=== PATIENT | female | born 1995 | race Caucasian/White ===

== ENCOUNTER 2025-04-13 04:18 | Emergency (ER) | payer OTHER, SELFPAY ==
[2025-04-13 04:24] VITALS: BP 129/80
[2025-04-13 04:45] VITALS: BMI 21.7
[2025-04-13] MEDS: REGLAN 10 MG IV (04:51)
[2025-04-13] MEDS: BENADRYL 25 MG IV (04:52)
[2025-04-13] MEDS: NSS 1000 IV ×2 (04:53→06:25)
[2025-04-13 05:00] LABS: Hematocrit 36.2 % (37.0-47.0); Hemoglobin 13.4 g/dL (12.0-16.0); Mean Corp Hgb Conc. 37.0 g/dL (33.0-37.0); Mean Corpuscular Volume 81.9 fL (81.0-99.0); Nucleated Red Blood Cells % 0 %; Platelet Count 289 10^3/uL (130-400); Red Cell Dist. Width 12.4 % (11.5-14.5)
[2025-04-13 05:10] LABS: HCG, Serum Qualitative Screen Negative
[2025-04-13 05:14] LABS: ALT (SGPT) 18 U/L (0-35); AST (SGOT) 26 U/L (14-36); Albumin 4.7 g/dl (3.5-5.0); Alkaline Phosphatase 58 U/L (38-126); Blood Urea Nitrogen 14 mg/dl (7-17); Calcium 12.1 mg/dl (8.4-10.2); Carbon Dioxide 16 mmol/L (22-30); Chloride 107 mmol/L (98-107); Estimated Creatinine Clearance 70 ml/min; Glucose 102 mg/dl (70-99); Lipase 62 U/L (23-300); Potassium 3.3 mmol/L (3.5-5.1); Sodium 138 mmol/L (135-145); Total Protein 7.7 g/dl (6.3-8.2); eGFR > 60.00
--- NOTE | 2025-04-13 06:05 | ED.GENMED ---
History of Present Illness
General
Chief Complaint: Abdominal Symptoms
Time Seen by Provider: 04/13/25 06:05
History of Present Illness
History of Present Illness:
FOCUSED PAST MEDICAL HISTORY
- Cyclic vomiting syndrome
REVIEW OF OLD RECORDS
- I reviewed records, the patient was admitted with sepsis/ureteral stone 2020. At that time it was documented he has a history of impaired gastric motility.
Note:
CHIEF COMPLAINT(S)
Nausea and recurrent vomiting episodes
HISTORY OF PRESENT ILLNESS
The patient is a 29-year-old female with a potential diagnosis of cyclic vomiting syndrome, experiencing episodic nausea and vomiting. These episodes occur approximately every 2-3 months but have become somewhat manageable over the past two years
through dietary adjustments. The patient reports an episode triggered by dehydration on a Friday but continues to experience vomiting due to ongoing gastric issues. Additionally, there is a suspicion of gastroparesis, although definitive gastric
motility studies have not been conducted yet. The patient presented to the emergency department with low bicarbonate levels consistent with dehydration. Since the onset of this current episode, the severity of symptoms includes significant nausea
without substantial pain.
PAST MEDICAL AND SURGICAL HISTORY
The patient mentioned previous visits to [facility] and occasional visits to [facility] for similar episodes.
MEDICATIONS
- Insulin
- Multivitamin
- Reglan (Metoclopramide)
- Promethazine (occasionally used for nausea)
SOCIAL HISTORY
The patient reports heavy daily marijuana use.
REVIEW OF SYSTEMS
- Gastrointestinal: Recurrent nausea, vomiting, potential gastroparesis.
- Metabolic: Low bicarbonate levels associated with dehydration.
- Psychological: Occasional use of antipsychotic medications for symptom management.
- Habits: Heavy daily use of marijuana.
PHYSICAL EXAM
General: Alert but appears uncomfortable.
Skin: Warm, dry.
Head: Normocephalic, atraumatic.
Neck: Supple, trachea midline.
Eye Ears, nose, mouth and throat: Oral mucosa moist.
Cardiovascular: Normal peripheral perfusion, No edema.
Respiratory: Respirations are non-labored.
Gastrointestinal: Moderate diffuse abdominal tenderness observed.
Back: Normal range of motion, Normal alignment.
Musculoskeletal: Normal range of motion, normal strength.
Neurological: Alert and oriented to person, place, time, and situation, No focal neurological deficit observed.
Psychiatric: Cooperative, appropriate mood & affect.
PLAN
- Administer additional intravenous fluids for rehydration.
- Consider antiemetic therapy tailored towards potential cannabinoid hyperemesis syndrome, possibly Ondansetron.
- Further exploration with possible use of antipsychotic medications for symptom control.
- Educate the patient on the potential implications of continued marijuana use on her symptoms, particularly concerning cannabinoid hyperemesis syndrome.
DIFFERENTIAL DIAGNOSIS
The Differential Diagnosis includes, in no particular order and is not limited to:
1. Cyclic vomiting syndrome
2. Gastroparesis
3. Cannabinoid hyperemesis syndrome
4. Gastroenteritis
5. Gastric outlet obstruction
6. Peptic ulcer disease
7. Gastroesophageal reflux disease
8. Pancreatitis
9. Migraine-associated nausea/vomiting
10. Metabolic or electrolyte imbalance
EKG
Sinus 67, QTc 471 ms
LABS
- White count 14.5, hemoglobin normal, creatinine 1.2, calcium 12.1, bicarb 16
SUMMARY OF ENCOUNTER
The patient, a 29-year-old female with a history suggestive of cyclic vomiting syndrome and potential cannabinoid hyperemesis syndrome, presented to the emergency department with significant dehydration, as evidenced by low bicarbonate levels.
Initial labs showed extremely high calcium levels likely due to dehydration but repeated tests normalized. Potassium levels remained low. The patient was rehydrated with IV fluids. There is a significant suspicion that heavy marijuana use may be
contributing to the recurrent episodes of nausea and vomiting. The patient was educated on the potential role of marijuana in her symptoms and advised on its cessation.
DISPOSITION
Discharge.
ASSESSMENT
The patient presented with signs consistent with dehydration and electrolyte imbalances due to cyclic vomiting syndrome or cannabinoid hyperemesis syndrome, complicated by low potassium levels.
EMERGENCY TREATMENTS ADMINISTERED
Intravenous fluids for rehydration and oral potassium supplementation.
PLAN
- Administer oral potassium supplementation prior to discharge.
- Educate the patient on the potential effects of heavy marijuana use on her symptoms and advise discontinuation to prevent further episodes.
- Prescribe oral potassium supplements for home use.
- Provide a work note for todays absence.
INDEPENDENT REVIEW OF LABS AND INTERPRETATION OF TESTS
My independent review of labs indicates initially low bicarbonate levels, suggesting significant dehydration. My independent review of electrolyte levels also shows extremely high initial calcium now normalized with repeated testing and low
potassium, which requires supplementation.
PATIENT EDUCATION AND COUNSELING
The patient was informed about the possibility of cannabinoid hyperemesis syndrome related to heavy marijuana use and advised to consider ceasing its use to alleviate symptoms.
FOLLOW-UP INSTRUCTIONS
The patient is discharged with instructions to follow up with her primary care provider for further management of her recurrent symptoms and assessment for potential gastroparesis and to discuss the impact of marijuana use.
MEDICATION RECONCILIATION
- Prescription for oral potassium supplements provided.
- Confirms current use of Metoclopramide (Reglan) for symptom management.
MEDICAL DECISION MAKING
- Number and Complexity of Problems Addressed: Chronic conditions affecting care include cyclic vomiting syndrome, potential cannabinoid hyperemesis syndrome, dehydration, and electrolyte imbalance. Differential diagnoses considered include
gastroparesis, gastric outlet obstruction, peptic ulcer disease, gastroesophageal reflux disease, pancreatitis, and metabolic or electrolyte imbalance.
- Data:
Category 1: Reviewed initial and repeat lab tests for bicarbonate, calcium, and potassium levels.
Category 2: N/A
Category 3: N/A
- Risk: Prescription drug management involves monitoring for potassium supplementations potential risks. Consideration of Admission/Observation was evaluated given the complexity but determined outpatient management is appropriate due to stable
presentation and response to initial treatments.
DIAGNOSIS
- Cyclic vomiting syndrome, R11.15
- Cannabinoid hyperemesis syndrome (suspected), F12.10
- Dehydration, E86.0
- Hypokalemia, E87.6
UPDATE
- The patient was given Reglan and Benadryl along with IV fluids prior to initial evaluation
- I also added Phenergan along with Haldol and we talked about the possibly of cannabinoid hyperemesis syndrome; she last used marijuana 4 days ago but does normally use daily
- Additional fluids were given as she has 2+ ketonuria and a bicarb of 16, her creatinine was also borderline at 1.2
- I reassessed patient at 9 AM, markedly improved after second liter of fluid
- Repeat chemistry show normalized bicarb the potassium remains low
- She is willing to try oral potassium
- She has Reglan at home
- Slightly low repeat blood pressure however mental status is excellent and overall feels much improved
Past History
Past History
ED Past Medical History: Seizures and Psychiatric
ED Past Surgical History: Orthopedic
Social History
Tobacco: Non-smoker
Alcohol: None
Drug: None
Personal: Single
Living: with family
Employment: Student
Family History
Family History: Other (Noncontributory)
Phy Exam
Physical Exam
Physical Exam:
See HPI
Course
Orders/Labs/Results
Orders:
Orders
04/13/25 04:30
IV Insert/Care/Rem.- Treatment PRN
04/13/25 04:43
Test Result ONCE
04/13/25 04:46
Complete Blood Count/With Diff Urgent
Comprehensive Metabolic Panel Urgent
HCG, Serum Qualitative Screen Urgent
Comment: .
Lipase Urgent
Urinalysis Reflex To Culture Urgent
Date Specimen was Collected: 04/13/25
Time Specimen was Collected: 04:30
Urine Microscopic Reflex Cult Urgent
04/13/25 04:49
Metoclopramide [Reglan] 10 mg .ROUTE .STK-MED ONE
04/13/25 04:50
Diphenhydramine [Benadryl] 50 mg .ROUTE .STK-MED ONE
04/13/25 04:51
Metoclopramide [Reglan] 10 mg IV NOW STA
04/13/25 04:52
Diphenhydramine [Benadryl] 25 mg IV NOW STA
04/13/25 04:53
0.9% Sodium Chloride 1000 ml [Nss] 1,000 ml IV BOLUS
04/13/25 06:15
0.9% Sodium Chloride 1000 ml [Nss] 1,000 ml IV BOLUS
Dextrose 5%/Lactringers 1000ML [D5lr] 1,000 ml Promethazine [Phenergan] 25 mg IV 125 mls/hr
Haloperidol Lactate [Haldol] 2.5 mg IV NOW STA
Ketorolac [Toradol] 15 mg IV NOW STA
04/13/25 06:32
ECG [Electrocardiogram (*1)] Urgent
Reason for Study: Other
Other Reason for Exam: iv haldol
Cardiology Consult: Unknown
04/13/25 06:33
EKG- Treatment ONCE
04/13/25 07:21
Promethazine [Phenergan] 25 mg 0.9% Sodium Chloride 50 ml [Nss] 50 ml IV NOW
04/13/25 08:05
Basic Metabolic Panel Urgent
04/13/25 08:56
Potassium Chloride Powder [Klor-Con] 60 meq PO NOW STA
Abnormal Lab Results
04/13/25 04/13/25
04:46 08:05
WBC 14.5 H 10^3/uL
(4.8-10.8)
Hct 36.2 L %
(37.0-47.0)
Abs Immat Gran (auto) 0.1 H 10^3/uL
(0-0.05)
Absolute Neuts (auto) 10.9 H 10^3/uL
(1.4-6.5)
Absolute Monos (auto) 1.1 H 10^3/uL
(0.1-0.6)
Lymphocytes % 16.4 L %
(20.5-51.1)
Potassium 3.3 L mmol/L 3.0 L mmol/L
(3.5-5.1) (3.5-5.1)
Chloride 108 H mmol/L
(98-107)
Carbon Dioxide 16 L mmol/L
(22-30)
Creatinine 1.2 H mg/dL 1.1 H mg/dL
(0.6-1.0) (0.6-1.0)
Glucose 102 H mg/dl 107 H mg/dl
(70-99) (70-99)
Calcium 12.1 H mg/dl
(8.4-10.2)
Urine Ketones 2+ A
(Negative)
Ur Occult Blood Reflex 4+ A
(Negative)
Urine RBC 7-10 A /HPF
(0-2)
Urine Bacteria (Reflex) Few A
(Negative)
Urine Albumin (Reflex) 1+ A
(Neg - Trace)
04/13/25 04:46
04/13/25 08:05
Vital Signs
Initial and Last Documented VS:
Initial Vital Signs
Temp Pulse Resp BP Pulse Ox
36.4 C 77 28 129/80 100
04/13/25 04:24 04/13/25 04:24 04/13/25 04:24 04/13/25 04:24 04/13/25 04:24
Last Documented Vital Signs
Temp Pulse Resp BP Pulse Ox
36.4 C 68 18 95/58 97
04/13/25 04:24 04/13/25 08:15 04/13/25 08:15 04/13/25 08:15 04/13/25 08:15
*Pulse Oximetry
SaO2: 98
Oxygen Mode of Delivery: Room air
Patient hypoxic: no
*Critical Care Note
Total Time (30-74mins, 75-104mins- exclusive of procedures): Not Applicable
ED Attending Note
-
Portions of this chart may have been created with voice recognition software.� Occasional wrong word or��sound alike� substitutions may have occurred due to the inherent limitations of voice recognition software.
Discharge Plan
Departure
Patient Disposition: Home (Routine Discharge)
Date of Disposition: 04/13/25
Time of Disposition: 08:56
Patient with high blood pressure during this ER visit?: Yes
Discharge Problem:
Cannabinoid hyperemesis syndrome
Instructions: Dehydration, Adult (DC), Nausea and Vomiting, Adult (DC), BLOOD PRESSURE
Prescriptions:
No Action
sertraline 100 MG tablet
200 mg PO HS
lamotrigine [Lamictal] 200 MG tablet
200 mg PO HS
norethindrone (contraceptive) 0.35 MG tablet
0.35 mg PO HS Qty: 0
acetaminophen 325 MG tablet
650 mg PO Q4HPRN PRN (Reason: mild pain/ fever>100.5F) 0RF
famotidine 20 MG tablet
20 mg PO HS Qty: 30 3RF
oxybutynin chloride 5 MG tablet
5 mg PO Q6HPRN PRN (Reason: frequent urination) Qty: 30 1RF
ondansetron 4 MG tablet,disintegrating
4 mg PO Q8HPRN PRN (Reason: nausea/vomiting)
amoxicillin-pot clavulanate 1 TABLET tablet
1 tab PO Q12 Qty: 20 0RF
Referrals:
NONE,* [Family Provider, Internal Medicine]
Stand Alone Forms: Return to Work
Activity Restrictions/Additional Instructions:
Your symptoms are likely related to cannabinoid hyperemesis syndrome or cyclic vomiting syndrome. We gave you several medications including Haldol. Your initial blood work suggested dehydration with a low bicarbonate level but repeat was improved.
Potassium level was still low and we gave you potassium. test negative. Urinalysis does not show signs of infection but also showed signs of dehydration. We gave you 2 L of fluid. Follow-up with your doctors. Return if worse
Interventions
Interventions:
*General Assessment Last Done: 04/13/25 04:24
*Neglect/Abuse Screening Last Done: 04/13/25 04:24
*ED COVID-19 Vaccine History Last Done: 04/13/25 04:24
*ED Influenza Vaccine History Last Done: 04/13/25 04:24
[facility] Fall Risk Assessment Tool Last Done: 04/13/25 04:24
*Risk Screen - Suicide (C-SSRS) Last Done: 04/13/25 04:58
JC-Khffgo-Kbwlfwnaep Assessment Last Done: 04/13/25 04:58
Discharge Date and Time
Print Language: PALAUAN
[2025-04-13] MEDS: TORADOL 15 MG IV (06:25)
[2025-04-13 06:31] LABS: Urine Character Clear (Clear)
[2025-04-13] MEDS: HALDOL 2.5 MG IV (06:43)
[2025-04-13 06:46] LABS: Urine Squamous Cell >30 /LPF (Few)
[2025-04-13] MEDS: PHENERGAN 51 MG IV (08:05)
[2025-04-13 08:11] VITALS: BP 98/60
[2025-04-13 08:15] VITALS: BP 95/58
[2025-04-13 08:36] LABS: Blood Urea Nitrogen 14 mg/dl (7-17); Calcium 10.1 mg/dl (8.4-10.2); Carbon Dioxide 22 mmol/L (22-30); Chloride 108 mmol/L (98-107); Estimated Creatinine Clearance 76 ml/min; Glucose 107 mg/dl (70-99); Potassium 3.0 mmol/L (3.5-5.1); Sodium 138 mmol/L (135-145); eGFR > 60.00
[2025-04-13 09:00] VITALS: BP 97/61
[2025-04-13] MEDS: KLOR-CON 60 MEQ PO (09:05)
[2025-04-13 10:00] VITALS: BP 119/78
== END 2025-04-13 10:13 | disposition home or self-care (01) ==
LOC: EMR 04:18
PROVIDERS: Student in an Organized Health Care Education/Training Program; EMERGENCY PHYSICIAN Emergency Medicine
DX: R11.16 Cannabis hyperemesis syndrome (principal); E86.0 Dehydration; F12.90 Cannabis use, unspecified, uncomplicated; E87.6 Hypokalemia
CPT/HCPCS: 99284; 96365; 96375 ×3; 96361 ×3; 80048; 80053; 81003; 81015; 83690; 84703; 85025; 93005